=== PATIENT | female | born 1995 | race Caucasian/White ===

== ENCOUNTER 2016-12-20 07:49 | Emergency (ER) | payer BC, OTHER ==
[2016-12-20 08:18] VITALS: BP 126/83; BMI 40.7
[2016-12-20] MEDS ORDERED: TYLENOL 500 MG TAB EXTRA STRENGTH PO ONE (08:20)
[2016-12-20] MEDS ORDERED: TYLENOL 500 MG TAB EXTRA STRENGTH ONE (08:21)
[2016-12-20 08:33] LABS: BILIRUBIN,URINE NEGATIVE (NEGATIVE); BLOOD/HEMOGLOBIN,URINE 4+ (NEGATIVE); GLUCOSE, URINE NEGATIVE (NEGATIVE); KETONES,URINE NEGATIVE (NEGATIVE); LEUKOCYTE ESTERASE ,URINE 2+ (NEGATIVE); NITRITES,URINE NEGATIVE (NEGATIVE); PH,URINE 6.5 (5.0 - 8.0); PROTEIN,URINE 2+ (NEGATIVE); UROBILINOGEN,URINE NORMAL (NORMAL)
--- NOTE | 2016-12-20 08:40 | DR.GENAD ---
HPI - PCP Primary Care Physician: BRUNA [facility] - HPI Comment HPI Comment: ONE, PARA ZERO WHO IS 9 WEEKS PRESENTS WITH LLQ ABDOMINAL, DYSURIA AND VAGINAL DISCHARGE. PAIN RADIATES TO LEFT BACK AND STARTED TODAY AT 02:00 AM. NO FEVER. INTRAUTERINE ESTABLISH PREVIOUSLY. SAW OB TUESDAY. US DONE AND THE BABY WAS DOING FINE. - Complaint/Symptoms Chief Complaint Doctors Comments: LLQ ABDOMINAL PAIN, VAGINAL DISCHARGE. Chief Complaint:: PT. IS 9 WEEKS AND IS C/O LLQ PAIN THAT RADIATES TO LEFT SIDE OF BACK. PT. ALSO C/O DYSURIA AND STATES SHE HAS BEEN HAVING A BROWNISH/YELLOW DISCHARGE. PT. DENIES VAGINAL BLEEDING. - Nurses notes reviewed Nurses Notes Review: Yes - Source History Provided: Patient - Mode of Arrival Mode of Arrival: Ambulatory - Timing Onset of Chief Complaint: 12/20/16 Came on: Suddenly - Duration Duration: Constant Duration: Hours - Severity Severity: Moderate PMH - PMH Past Medical History: Yes Past Medical History: Anemia, Diabetes, Kidney Stones Past Medical History Comment: EPIPLEPSY Past Surgical History: Yes Surgical History: CREW DISPATCHER Surgery, Ortho Surgery, Tonsillectomy, Lithotripsy Past Surgical History Comment: 2 D&C, STENT PLACEMENT TO LEFT KIDNEY - Family History History of Family Medical Conditions: Yes Family Medical History: Hypertension - Social History Does patient currently use any type of tobacco product: Yes Have you used tobacco products in the last 12 months: Yes Type of Tobacco Use: Cigarettes Does any household member use tobacco: No Alcohol Use: None Do you use any recreational Drugs:: No Lives With: Family Lives Where: Home - infectious screening In the last 2 months have you had wt loss of >10#?: NO Have you had fever, night sweats or hemotysis?: No Have you traveled outside the country in the last 6 months?: No Isolation: Standard ROS - Review of Systems Constitutional: No Symptoms Reported. negative: Chills, Fever, Weakness, Fatigue, Loss of Appetite Eyes: No Symptoms Reported. negative: Eye Pain, Discharge ENTM: No Symptoms Reported. negative: Ear Pain, Nose Discharge, Nose Congestion , Throat Pain Respiratoy: No Symptoms Reported. negative: Productive Cough, Non-Productive Cough, Short of Breath, Wheezing, Hemoptysis Cardiovascular: No Symptoms Reported. negative: Chest Pain, Edema Gastrointestinal/Abdominal: Abdominal Pain Genitourinary: Dysuria Neurological: No Symptoms Reported Musculoskeletal: No Symptoms Reported Integumentary: No Symptoms Reported Hematologic/Lymphatic: No Symptoms Reported Endocrine: No Symptoms Reported All Other Systems: Reviewed and Negative PE - Vital Signs Vitals: Temperature 97.9 F Pulse Rate 87 Respiratory Rate 17 Blood Pressure 126/83 O2 Sat by Pulse Oximetry 96 - General Limitations: No Limitations General Appearance: Alert - Head Head Exam: Normal Inspection - Eyes Eye exam: Normal Appearance - ENT ENT Exam: Normal External Ear Exam External Ear Exam: Normal External Inspection TM/Canal Exam: Bilateral Normal Nose Exam: Normal Nose Exam Mouth Exam: Normal Inspection Throat Exam: Normal Inspection - Neck Neck Exam: Trachea Midline - Chest Chest Inspection: Symmetric Chest Wall Rise - Respiratory Respiratory Exam: Normal Lung Sounds Bilat Respiratory Exam: Bilateral Clear to Auscultation - Cardiovascular Cardiovascular Exam: Regular Rate, Normal Rhythm, Normal Heart Sounds - Abdominal Exam Abdominal Exam: Normal Bowel Sounds, Soft, Tenderness Abdominal Tenderness: LUQ, Moderate - Extremities Extremities Exam: Normal Inspection - Back Back Exam: Normal Inspection - Neurologic Neurological Exam: Alert, Oriented X3 - Psychiatric Psychiatric Exam: Anxious - Skin Skin Exam: Normal Color MDM - Differential Diagnosis Differential Diagnosis: LLQ ABDOMINAL PAIN, THREATENED MISCARRIAGE, UTI, PID, KIDNEY STONE Course - Treatment Treatment: SEE ORDERS - Education/Counseling Education/Counseling: Patient, Education Educated On: Diagnosis ROR - Labs Reviewed Laboratory Results Reviewed?: Yes Result Diagrams: 12/20/16 09:20 12/20/16 09:20 Laboratory: WBC 10.0 X10^3/uL (3.6-10.0) 12/20/16 09:20 RBC 4.82 X10^6/uL (3.5-5.4) 12/20/16 09:20 Hgb 14.2 g/dL (12.0-16.0) 12/20/16 09:20 Hct 41.4 % (36.0-47.0) 12/20/16 09:20 MCV 85.9 fL (80.0-100.0) 12/20/16 09:20 MCH 29.5 pg (27.0-34.0) 12/20/16 09:20 MCHC 34.4 g/dL (33.0-35.0) 12/20/16 09:20 RDW 13.4 % (11.6-16.5) 12/20/16 09:20 Plt Count 240 X10^3/uL (150.0-450.0) 12/20/16 09:20 MPV 8.2 fL (7.4-11.0) 12/20/16 09:20 Neut % 76.1 % (42.0-75.0) H 12/20/16 09:20 Lymph % 15.9 % (21.0-51.0) L 12/20/16 09:20 [place] % 5.8 % (0.0-13.0) 12/20/16 09:20 Eos % 1.5 % (0.9-2.9) 12/20/16 09:20 Baso % 0.7 % (0.2-1.0) 12/20/16 09:20 Neut # 7.6 x10^3/uL (2.2-4.8) H 12/20/16 09:20 Lymph # 1.6 X10^3/uL (1.3-2.9) 12/20/16 09:20 [place] # 0.6 x10^3/uL (0.3-0.8) 12/20/16 09:20 Eos # 0.1 x10^3/uL (0.0-0.2) 12/20/16 09:20 Baso # 0.1 X10^3/uL (0.0-0.1) 12/20/16 09:20 Absolute Nucleated RBC 0.0 /100WBC 12/20/16 09:20 Sodium 140 mmol/L (136-145) 12/20/16 09:20 Corrected Sodium TNP 12/20/16 09:20 Potassium 3.7 mmol/L (3.5-5.1) 12/20/16 09:20 Chloride 104 mmol/L (98-107) 12/20/16 09:20 Carbon Dioxide 25.7 mmol/L (21-32) 12/20/16 09:20 BUN 8 mg/dL (7-18) 12/20/16 09:20 Creatinine 0.79 mg/dL (0.55-1.02) 12/20/16 09:20 Est GFR (MDRD) Af Amer > 60 (>60) 12/20/16 09:20 Est GFR (MDRD) Non-Af > 60 (>60) 12/20/16 09:20 Glucose 92 mg/dL (65-99) 12/20/16 09:20 Calcium 9.1 mg/dL (8.5-10.1) 12/20/16 09:20 Corrected Calcium TNP 12/20/16 09:20 Total Bilirubin 0.30 mg/dL (0.2-1.0) 12/20/16 09:20 AST 14 Units/L (15-37) L 12/20/16 09:20 ALT 30 Units/L (12-78) 12/20/16 09:20 Alkaline Phosphatase 67 Units/L (46-116) 12/20/16 09:20 Total Protein 7.3 g/dL (6.4-8.2) 12/20/16 09:20 Albumin 3.8 g/dL (3.4-5.0) 12/20/16 09:20 Globulin 3.5 g/dL (2.5-4.5) 12/20/16 09:20 Albumin/Globulin Ratio 1.1 Ratio (1.1-2.1) 12/20/16 09:20 HCG, Quant 48630 mIU/mL (0-6) H 12/20/16 09:20 Specimen Type Clean catch urine 12/20/16 08:06 Urine Color Yellow (YELLOW) 12/20/16 08:06 Urine Appearance Hazy (CLEAR) 12/20/16 08:06 Urine pH 6.5 (5.0 - 8.0) 12/20/16 08:06 Ur Specific [place] 1.020 (1.000-1.030) 12/20/16 08:06 Urine Protein 2+ (NEGATIVE) 12/20/16 08:06 Urine Glucose (UA) Negative (NEGATIVE) 12/20/16 08:06 Urine Ketones Negative (NEGATIVE) 12/20/16 08:06 Urine Occult Blood 4+ (NEGATIVE) 12/20/16 08:06 Urine Nitrite Negative (NEGATIVE) 12/20/16 08:06 Urine Bilirubin Negative (NEGATIVE) 12/20/16 08:06 Urine Urobilinogen Normal (NORMAL) 12/20/16 08:06 Ur Leukocyte Esterase 2+ (NEGATIVE) 12/20/16 08:06 Urine RBC 8-10 /HPF (NEGATIVE) 12/20/16 08:06 Urine WBC 4-5 /HPF (NEGATIVE) 12/20/16 08:06 Ur Squamous Epith Cells Many /HPF (NEGATIVE) 12/20/16 08:06 Amorphous Sediment 3+ /HPF (NEGATIVE) 12/20/16 08:06 Urine Bacteria Trace /HPF (NEGATIVE) 12/20/16 08:06 Ur Culture Indicated? No/not indicated 12/20/16 08:06 Ur C. trach DNA (PCR) Not detected (NOT DETECT) 12/20/16 13:09 U N.gonorrhoeae DNA PCR Not detected (NOT DETECT) 12/20/16 13:09 - XRAY XRAY Interpreted by: Radiologist XRAY Findings: REPORT DISCUSS WITH PATIENT - Diagnosis Discharge Problem: UTI (urinary tract infection) during , Abdominal pain affecting - Discharge Plan Disposition: 01 HOME, SELF-CARE Condition: Stable Prescriptions: Acetaminophen W/ Codeine [Tylenol/Codeine #3 300-30 mg] 1 tab PO Q4-6H PRN #12 tab PRN Reason: Pain Nitrofurantoin Macro [Macrobid Cap 100 mg Ext Rel] 100 mg PO BID #14 cap - Follow ups/Referrals Follow ups/Referrals: NFD,None [Primary Care Provider] - 2 days - Instructions Instructions: and Urinary Tract Infection, Abdominal Pain During , [id number] Additional Instructions: RETURN TO ED IF WORSE. SEE OB DR COLON THIS WEEK.
[2016-12-20 08:41] LABS: APPEARANCE,URINE HAZY (CLEAR); COLOR,URINE YELLOW (YELLOW)
[2016-12-20 08:42] LABS: AMORPHOUS SEDIMENT,UR 3+ /HPF (NEGATIVE); BACTERIA,URINE TRACE /HPF (NEGATIVE); SQUAMOUS EPITHELIAL CELL,UR MANY /HPF (NEGATIVE)
[2016-12-20 09:32] LABS: BASOPHILS # (AUTO) 0.1 X10^3/uL (0.0-0.1); BASOPHILS % (AUTO) 0.7 % (0.2-1.0); EOSINOPHILS # (AUTO) 0.1 x10^3/uL (0.0-0.2); EOSINOPHILS % (AUTO) 1.5 % (0.9-2.9); HEMATOCRIT 41.4 % (36.0-47.0); HEMOGLOBIN 14.2 g/dL (12.0-16.0); LYMPHOCYTES # (AUTO) 1.6 X10^3/uL (1.3-2.9); LYMPHOCYTES % (AUTO) 15.9 % (21.0-51.0); MEAN CORPUSCULAR HEMOGLOBIN 29.5 pg (27.0-34.0); MEAN CORPUSCULAR HGB CONC 34.4 g/dL (33.0-35.0); MEAN CORPUSCULAR VOLUME 85.9 fL (80.0-100.0); MEAN PLATELET VOLUME 8.2 fL (7.4-11.0); MONOCYTES # (AUTO) 0.6 x10^3/uL (0.3-0.8); MONOCYTES % (AUTO) 5.8 % (0.0-13.0); NEUTROPHILS # (AUTO) 7.6 x10^3/uL (2.2-4.8); NEUTROPHILS % (AUTO) 76.1 % (42.0-75.0); PLATELET COUNT 240 X10^3/uL (150.0-450.0); RED BLOOD COUNT 4.82 X10^6/uL (3.5-5.4); RED CELL DISTRIBUTION WIDTH 13.4 % (11.6-16.5)
--- NOTE | 2016-12-20 09:35 | US ---
RENAL ULTRASOUND History: Left flank pain Comparison: CT abdomen pelvis 08/30/2015 Technique: Multiple barber scale and color flow Doppler images of the kidneys were obtained. The liliana on of the urinary bladder was evaluated as well. Findings: The kidneys are normal in echogenicity. The right kidney measures 11.6 cm. No focal mass, hydronephrosis, or stones identified. The left kidney measures 12.5 cm. No focal mass, hydronephrosis, or stone identified. Small cyst in the upper pole. Incidental note of hepatic steatosis. Gravid uterus identified. IMPRESSION: 1. Small parapelvic cyst in the upper pole the left kidney. 2. Hepatic steatosis. 3. Gravid uterus Reported By:
[2016-12-20 09:41] LABS: ALANINE AMINOTRANSFERASE 30 Units/L (12-78); ALBUMIN 3.8 g/dL (3.4-5.0); ALKALINE PHOSPHATASE 67 Units/L (46-116); ASPARTATE AMINO TRANSFERASE 14 Units/L (15-37); BLOOD UREA NITROGEN 8 mg/dL (7-18); CALCIUM 9.1 mg/dL (8.5-10.1); CARBON DIOXIDE 25.7 mmol/L (21-32); CHLORIDE 104 mmol/L (98-107); CREATININE 0.79 mg/dL (0.55-1.02); GLUCOSE 92 mg/dL (65-99); SODIUM 140 mmol/L (136-145); TOTAL PROTEIN 7.3 g/dL (6.4-8.2); eGFR BLACK RACES > 60 (>60); eGFR NON BLACK RACES > 60 (>60)
[2016-12-20 14:56] LABS: CHLAMYDIA TRACH URINE NOT DETECTED (NOT DETECT)
== END 2016-12-20 11:20 | disposition home or self-care (01) ==
LOC: ER 08:15
DX: O08.83 Urinary tract infection following an ectopic and molar pregnancy (principal); R10.32 Left lower quadrant pain; Z3A.10 10 weeks gestation of pregnancy; K76.0 Fatty (change of) liver, not elsewhere classified; N28.1 Cyst of kidney, acquired; O34.519 Maternal care for incarceration of gravid uterus, unspecified trimester
CPT/HCPCS: 36415; 76770; 80053; 81001; 84702; 85025; 87491; 87591; 99283; 99284

== ENCOUNTER 2017-02-07 15:37 | Emergency (ER) | payer OTHER ==
[2017-02-07 15:40] VITALS: BMI 40.0
--- NOTE | 2017-02-07 16:17 | DR.GENAD ---
HPI - PCP Primary Care Physician: DR. COLON - HPI Comment HPI Comment: HISTORY BELOW. - Complaint/Symptoms Chief Complaint Doctors Comments: PATIENT IS ONE PARA ZERO WHO IS 16WEEKS PRESENTS WITH LOWER ABDOMINAL PAIN AND LOWER BACK PAIN SINCE 09 :00 AM TODAY. VAGINAL BLEEDING WHILE IN ED. Chief Complaint:: PT. C/O LOWER ABDOMINAL AND LOWER BACK PAIN THAT BEGAN AT 0930 THIS MORNING. PT. IS 16 WEEKS . SHE STATES THE PAIN COMES AND GOES EVERY FEW MINUTES. DENIES VAGINAL BLEEDING OR FLUID LEAKAGE. PT. HAS BEEN AT WORK ALL DAY, STANDING ON HER FEET. - Nurses notes reviewed Nurses Notes Review: Yes - Source History Provided: Patient - Mode of Arrival Mode of Arrival: Ambulatory - Timing Onset of Chief Complaint: 02/07/17 Came on: Suddenly - Duration Duration: Constant Duration: Days - Severity Severity: Moderate PMH - PMH Past Medical History: Yes Past Medical History: Kidney Stones, Seizures Past Surgical History: Yes Surgical History: INDEPENDENT VIDEO PRODUCER Surgery, Ortho Surgery, Tonsillectomy, Lithotripsy - Family History History of Family Medical Conditions: Yes Family Medical History: Hypertension - Social History Does patient currently use any type of tobacco product: Yes Have you used tobacco products in the last 12 months: Yes Type of Tobacco Use: Cigarettes Does any household member use tobacco: No Alcohol Use: None Do you use any recreational Drugs:: No Lives With: Family Lives Where: Home - infectious screening In the last 2 months have you had wt loss of >10#?: NO Have you had fever, night sweats or hemotysis?: No Have you traveled outside the country in the last 6 months?: No Isolation: Standard ROS - Review of Systems Constitutional: No Symptoms Reported Eyes: No Symptoms Reported ENTM: No Symptoms Reported Respiratoy: No Symptoms Reported Cardiovascular: No Symptoms Reported Gastrointestinal/Abdominal: Abdominal Pain, Nausea Genitourinary: Bleeding (VAGINAL BLEEDING.) Neurological: No Symptoms Reported Musculoskeletal: No Symptoms Reported Integumentary: No Symptoms Reported Hematologic/Lymphatic: No Symptoms Reported Endocrine: No Symptoms Reported All Other Systems: Reviewed and Negative PE - Vital Signs Vitals: Temperature 98.2 F Pulse Rate [Left Brachial] 95 Pulse Rate 99 Respiratory Rate 20 Blood Pressure [Left Arm] 136/82 Blood Pressure 144/77 O2 Sat by Pulse Oximetry 99 - General Limitations: No Limitations General Appearance: Alert - Head Head Exam: Normal Inspection - Eyes Eye exam: Normal Appearance - ENT ENT Exam: Normal External Ear Exam External Ear Exam: Normal External Inspection TM/Canal Exam: Bilateral Normal Nose Exam: Normal Nose Exam Mouth Exam: Normal Inspection Throat Exam: Normal Inspection - Neck Neck Exam: Trachea Midline - Chest Chest Inspection: Symmetric Chest Wall Rise - Respiratory Respiratory Exam: Normal Lung Sounds Bilat Respiratory Exam: Bilateral Clear to Auscultation - Cardiovascular Cardiovascular Exam: Regular Rate, Normal Rhythm, Normal Heart Sounds - Abdominal Exam Abdominal Exam: Normal Bowel Sounds, Soft, Tenderness Abdominal Tenderness: RLQ, LLQ, Suprapubic - Extremities Extremities Exam: Normal Inspection - Back Back Exam: Normal Inspection - Neurologic Neurological Exam: Alert, Oriented X3 - Psychiatric Psychiatric Exam: Normal Affect, Normal Mood - Skin Skin Exam: Normal Color MDM - Additional Information Additional Information Obtained From: Family - Differential Diagnosis Differential Diagnosis: ABDOMINAL PAIN DURING , VAGINAL BLEEDING, UTI Course - Treatment Treatment: SEE [id number]. - Consultation Consultation Comments: PATIENT ACCEPTED FOR TRANSFER BY DR. FALK. - Education/Counseling Education/Counseling: Patient, Education Educated On: Diagnosis ROR - Labs Reviewed Laboratory Results Reviewed?: Yes Result Diagrams: 02/07/17 16:24 02/07/17 16:24 Laboratory: WBC 11.4 X10^3/uL (3.6-10.0) H 02/07/17 16:24 RBC 4.28 X10^6/uL (3.5-5.4) 02/07/17 16:24 Hgb 12.6 g/dL (12.0-16.0) 02/07/17 16:24 Hct 36.1 % (36.0-47.0) 02/07/17 16:24 MCV 84.4 fL (80.0-100.0) 02/07/17 16:24 MCH 29.5 pg (27.0-34.0) 02/07/17 16:24 MCHC 35.0 g/dL (33.0-35.0) 02/07/17 16:24 RDW 13.2 % (11.6-16.5) 02/07/17 16:24 Plt Count 219 X10^3/uL (150.0-450.0) 02/07/17 16:24 MPV 8.7 fL (7.4-11.0) 02/07/17 16:24 Neut % 71.2 % (42.0-75.0) 02/07/17 16:24 Lymph % 19.2 % (21.0-51.0) L 02/07/17 16:24 [place] % 6.3 % (0.0-13.0) 02/07/17 16:24 Eos % 2.9 % (0.9-2.9) 02/07/17 16:24 Baso % 0.4 % (0.2-1.0) 02/07/17 16:24 Neut # 8.1 x10^3/uL (2.2-4.8) H 02/07/17 16:24 Lymph # 2.2 X10^3/uL (1.3-2.9) 02/07/17 16:24 [place] # 0.7 x10^3/uL (0.3-0.8) 02/07/17 16:24 Eos # 0.3 x10^3/uL (0.0-0.2) H 02/07/17 16:24 Baso # 0.0 X10^3/uL (0.0-0.1) 02/07/17 16:24 Absolute Nucleated RBC 0.0 /100WBC 02/07/17 16:24 Sodium 138 mmol/L (136-145) 02/07/17 16:24 Corrected Sodium TNP 02/07/17 16:24 Potassium 3.5 mmol/L (3.5-5.1) 02/07/17 16:24 Chloride 103 mmol/L (98-107) 02/07/17 16:24 Carbon Dioxide 24.6 mmol/L (21-32) 02/07/17 16:24 BUN 8 mg/dL (7-18) 02/07/17 16:24 Creatinine 0.68 mg/dL (0.55-1.02) 02/07/17 16:24 Est GFR (MDRD) Af Amer > 60 (>60) 02/07/17 16:24 Est GFR (MDRD) Non-Af > 60 (>60) 02/07/17 16:24 Glucose 91 mg/dL (65-99) 02/07/17 16:24 Calcium 8.8 mg/dL (8.5-10.1) 02/07/17 16:24 Corrected Calcium TNP 02/07/17 16:24 Total Bilirubin 0.10 mg/dL (0.2-1.0) L 02/07/17 16:24 AST 11 Units/L (15-37) L 02/07/17 16:24 ALT 19 Units/L (12-78) 02/07/17 16:24 Alkaline Phosphatase 61 Units/L (46-116) 02/07/17 16:24 Total Protein 7.2 g/dL (6.4-8.2) 02/07/17 16:24 Albumin 3.4 g/dL (3.4-5.0) 02/07/17 16:24 Globulin 3.8 g/dL (2.5-4.5) 02/07/17 16:24 Albumin/Globulin Ratio 0.9 Ratio (1.1-2.1) L 02/07/17 16:24 HCG, Quant 7361 mIU/mL (0-6) H 02/07/17 16:24 Specimen Type Clean catch urine 02/07/17 16:06 Urine Color Bloody (YELLOW) 02/07/17 16:06 Urine Appearance Cloudy (CLEAR) 02/07/17 16:06 Urine pH 6.0 (5.0 - 8.0) 02/07/17 16:06 Ur Specific [place] 1.030 (1.000-1.030) 02/07/17 16:06 Urine Protein 3+ (NEGATIVE) 02/07/17 16:06 Urine Glucose (UA) Negative (NEGATIVE) 02/07/17 16:06 Urine Ketones Negative (NEGATIVE) 02/07/17 16:06 Urine Occult Blood 5+ (NEGATIVE) 02/07/17 16:06 Urine Nitrite Negative (NEGATIVE) 02/07/17 16:06 Urine Bilirubin Negative (NEGATIVE) 02/07/17 16:06 Urine Urobilinogen Normal (NORMAL) 02/07/17 16:06 Ur Leukocyte Esterase 2+ (NEGATIVE) 02/07/17 16:06 Urine RBC Tntc /HPF (NEGATIVE) 02/07/17 16:06 Urine WBC 2-6 /HPF (NEGATIVE) 02/07/17 16:06 Ur Squamous Epith Cells Moderate /HPF (NEGATIVE) 02/07/17 16:06 Calcium Oxalate Crystal Few /HPF (NEGATIVE) 02/07/17 16:06 Urine Bacteria Trace /HPF (NEGATIVE) 02/07/17 16:06 Ur Culture Indicated? No/not indicated 02/07/17 16:06 - XRAY XRAY Interpreted by: Radiologist XRAY Findings: REPORT DISCUSS WITH PATIENT AND FAMILY. - Diagnosis Discharge Problem: Abdominal pain during intrauterine , Vaginal bleeding before 22 weeks gestation, Threatened miscarriage - Discharge Plan Disposition: [facility] Condition: Stable - Follow ups/Referrals Follow ups/Referrals: NFD,None [Primary Care Provider] - 3 days - Instructions
[2017-02-07 16:25] LABS: BILIRUBIN,URINE NEGATIVE (NEGATIVE); BLOOD/HEMOGLOBIN,URINE 5+ (NEGATIVE); GLUCOSE, URINE NEGATIVE (NEGATIVE); KETONES,URINE NEGATIVE (NEGATIVE); LEUKOCYTE ESTERASE ,URINE 2+ (NEGATIVE); NITRITES,URINE NEGATIVE (NEGATIVE); PROTEIN,URINE 3+ (NEGATIVE); UROBILINOGEN,URINE NORMAL (NORMAL)
[2017-02-07 16:30] LABS: BASOPHILS % (AUTO) 0.4 % (0.2-1.0); EOSINOPHILS # (AUTO) 0.3 x10^3/uL (0.0-0.2); EOSINOPHILS % (AUTO) 2.9 % (0.9-2.9); HEMATOCRIT 36.1 % (36.0-47.0); HEMOGLOBIN 12.6 g/dL (12.0-16.0); LYMPHOCYTES # (AUTO) 2.2 X10^3/uL (1.3-2.9); LYMPHOCYTES % (AUTO) 19.2 % (21.0-51.0); MEAN CORPUSCULAR HEMOGLOBIN 29.5 pg (27.0-34.0); MEAN CORPUSCULAR VOLUME 84.4 fL (80.0-100.0); MEAN PLATELET VOLUME 8.7 fL (7.4-11.0); MONOCYTES # (AUTO) 0.7 x10^3/uL (0.3-0.8); MONOCYTES % (AUTO) 6.3 % (0.0-13.0); NEUTROPHILS # (AUTO) 8.1 x10^3/uL (2.2-4.8); NEUTROPHILS % (AUTO) 71.2 % (42.0-75.0); PLATELET COUNT 219 X10^3/uL (150.0-450.0); RED BLOOD COUNT 4.28 X10^6/uL (3.5-5.4); RED CELL DISTRIBUTION WIDTH 13.2 % (11.6-16.5); WHITE BLOOD COUNT 11.4 X10^3/uL (3.6-10.0)
[2017-02-07 16:33] LABS: APPEARANCE,URINE CLOUDY (CLEAR); BACTERIA,URINE TRACE /HPF (NEGATIVE); CALCIUM OXALATE CRYSTALS,UR FEW /HPF (NEGATIVE); COLOR,URINE BLOODY (YELLOW); RBC,URINE TNTC /HPF (NEGATIVE); SQUAMOUS EPITHELIAL CELL,UR MODERATE /HPF (NEGATIVE)
[2017-02-07 16:41] LABS: ALANINE AMINOTRANSFERASE 19 Units/L (12-78); ALBUMIN 3.4 g/dL (3.4-5.0); ALKALINE PHOSPHATASE 61 Units/L (46-116); ASPARTATE AMINO TRANSFERASE 11 Units/L (15-37); CALCIUM 8.8 mg/dL (8.5-10.1); CARBON DIOXIDE 24.6 mmol/L (21-32); CHLORIDE 103 mmol/L (98-107); CREATININE 0.68 mg/dL (0.55-1.02); GLUCOSE 91 mg/dL (65-99); SODIUM 138 mmol/L (136-145); TOTAL PROTEIN 7.2 g/dL (6.4-8.2); eGFR BLACK RACES > 60 (>60); eGFR NON BLACK RACES > 60 (>60)
[2017-02-07 16:49] LABS: BLOOD UREA NITROGEN 8 mg/dL (7-18)
[2017-02-07 17:17] LABS: HCG,QUANTITATIVE 7361 mIU/mL (0-6)
[2017-02-07] MEDS ORDERED: TYLENOL 500 MG TAB EXTRA STRENGTH ONE (17:34)
--- NOTE | 2017-02-07 17:37 | US ---
HISTORY: Abdominal pain Study: OB ultrasound greater than 14 weeks Comparison: None Technique: Multiple grayscale and color flow Doppler images of the pelvis were obtained with focused evaluation of the fetus. Findings: A single living intrauterine gestation is identified with heart tones of 144 beats per minute. A breech presentation is observed. The placenta is anterior. There were uterine contractions presen t during the exam. Detailed anatomic screening is not performed on this limited exam. Value (cm) Estimated Gestational Age BPD 3.7 17 weeks 3 days HC 13.97 17 weeks 2 day AC 11.69 17 weeks 3 days FL 2.5 17 weeks 5 days Average age by ultrasound: 17 weeks 3 days THUAN by ultrasound: 07/15/2017 Estimated weight: 198 g (0.44 lb) IMPRESSION: Single living intrauterine gestation measuring 17 weeks 3 days with heart rate 144 bpm as deta iled above. Uterine contractions were seen during the ultrasound exam. No acute abnormality identifi ed. Reported By:
[2017-02-07] MEDS ORDERED: PERCOCET TAB 5/325 MG ONE ×2 (18:05→20:03)
[2017-02-07] MEDS ORDERED: PERCOCET TAB 5/325 MG PO ONE ×2 (18:07→20:00)
[2017-02-07 19:48] VITALS: BP 136/82
[2017-02-07] MEDS ORDERED: ZOFRAN TAB 4 MG ONE (20:03)
[2017-02-07] MEDS ORDERED: ZOFRAN TAB 4 MG PO ONE (20:09)
== END 2017-02-07 20:25 | disposition short-term general hospital (02) ==
LOC: ER 15:37
DX: R10.84 Generalized abdominal pain (principal); Z3A.17 17 weeks gestation of pregnancy; O20.8 Other hemorrhage in early pregnancy; O20.0 Threatened abortion
CPT/HCPCS: 36415; 76815; 80053; 81001; 84702; 85025; 96365; 99284; 99285; A4222; S0181